=== PATIENT | female | born 1960 | race Caucasian/White ===

== ENCOUNTER 2016-05-24 17:23 | Emergency (ER) | payer OTHER ==
--- NOTE | 2016-05-24 18:01 | DIAGNOSTIC IMAGING REPORT ---
PROCEDURE: XR CHEST 2 VIEW INDICATION: COUGH AND GENERALIZED WEAKNESS TECHNIQUE: PA and lateral views. COMPARISON: None. FINDINGS: Allowing for overlying wires and electrodes, lungs are clear. Heart and mediastinum are normal. Thorax is normal. IMPRESSION: 1. Negative chest.
--- NOTE | 2016-05-24 20:15 | ED ORDER SUMMARY ---
..... Patient: EMMY ORTEGA OrderSheet [facility] VisitID: [id number] [place] [address] 56y, F Registration Date/Time: 05/24/2016 ORDER SHEET Weight: 77.1 kg (estimated) Allergies: Penicillin, Horse-derived Products, Tetracycline GENERAL ORDERS: Chest 2V Urgent (17:33 05/24/2016 Caeasr Duncan) (Ack 17:43 LTapper) (18:41 HOShaughnessy R.N.) Program Director/Morning Show Host (Continuous) (recheck today's concerns) (17:33 05/24/2016 Caesar Duncan) (17:52 HOShaughnessy R.N.) CBC w Diff Urgent (17:05/24/2016 Caesar Duncan) (Ack 17:43 LTapper) (17:52 HOShaughnessy R.N.) CMP Urgent (17:05/24/2016 Caesar Duncan) (Ack 17:43 LTapper) (17:52 HOShaughnessy R.N.) UA-Culture if indicated Urgent (17:33 05/24/2016 Caesar Duncan) (Ack 17:43 LTapper) (18:41 HOShaughnessy R.N.) TSH Urgent (17:33 05/24/2016 Caesar Duncna) (Ack 17:43 LTapper) (17:52 HOShaughnessy R.N.) Lactate, Serum Urgent (17:05/24/2016 Caesar Duncan) (Ack 17:43 LTapper) (17:52 HOShaughnessy R.N.) Pulse oximeter (17:33 05/24/2016 Caesar Duncan) (17:52 HOShaughnessy R.N.) POC Glucose (check 1 hour after insulin) (19:23 05/24/2016 Caesar Duncan) (Cancelled: Other19:24 Caesar Duncan) MEDICATION ORDERS: Potassium Chloride PO 60 meq (NOW) (18:31 05/24/2016 Caesar Duncan) (18:38 HOShaughnessy R.N.) Acetaminophen PO 650 mg (NOW) (18:33 05/24/2016 Caesar Duncan) (Ack 20:07 Jessika R.N.) Insulin Reg Subcut 4 units (HIGH ALERT MEDICATION, NOW) (19:18 05/24/2016 Caesar Duncan) (Cancelled: Other19:35 Caesar Duncan) Azithromycin PO 500 mg (NOW) (19:36 05/24/2016 Caesar Duncan) (20:03 Josefina R.N.) IV FLUIDS: IV NS : initial bolus 1000 mL (1000 mL/hr), then none - for X1 (NOW) (17:33 05/24/2016 Caesar Duncan) (18:04 Josefina R.N.) Toradol IV 30 mg (NOW) (18:33 05/24/2016 Caesar Duncan) (Ack 20:07 Jessika R.N.) IV NS : initial bolus 1000 mL (1000 mL/hr), then none - for X1 (NOW) (19:35 05/24/2016 Caesar Duncan) (20:04 HOShaughchristal R.N.) ORDER SHEET NOTES: [Electronically signed by Larry May R.N. (21:47 05/24/2016)] [Electronically signed by Jose Martins Dr. (19:50 05/26/2016)] [Electronically locked/signed by Larry May R.N. (21:47 05/24/2016)]
--- NOTE | 2016-05-24 20:15 | ED CLINICAL REPORT ---
Clinical Report - Physicians/Mid Levels [facility] [address] [place] [address] 05/24/2016 17:23 Patient: EMMY ORTEGA Arrived- By ambulance. Historian- patient. HISTORY OF PRESENT ILLNESS Chief Complaint: COUGH. This started past several weeks and is still present (staying the same). It was gradual in onset and has been constant but is not gone now. The illness is described as moderate. The patient has had sputum production, a cough, difficulty breathing, nasal congestion and a nasal discharge. No fever or chills. Additional history - The patient has had contact with a sick individual. (spouse). No recent travel. (patient reports being under a lot of stress at work. she states they are having her work out of her comfort zone and it is causing anxiety.). Similar symptoms previously: None. Recent medical care: Not recently seen/assessed. REVIEW OF SYSTEMS No headache. All systems otherwise negative, except as recorded above. PAST HISTORY See nurses notes. Problems: no known problems. Additional Surgeries: no known surgeries. Medications: None. Allergies: Horse-derived Products. Penicillin. Tetracycline. SOCIAL HISTORY Never smoker. No alcohol use or drug use. No recent travel. Is a local resident. ADDITIONAL NOTES The nursing notes have been reviewed. PHYSICAL EXAM Vital Signs: 05/24/2016 17:32 BP: 153/66. HR: 71. RR: 16. O2 saturation: 100%. Temp: 98.2 F. Blood pressure normal. Oxygen saturation normal. Appearance: Alert. Anxious. Patient in mild distress. Eyes: Pupils equal, round and reactive to light. Eyes normal inspection. ENT: Ears normal. Nose normal. Pharynx normal. Uvula midline. Neck: Normal inspection. Neck supple. CVS: Normal heart rate and rhythm. Heart sounds normal. Pulses normal. Respiratory: No respiratory distress. Breath sounds normal. Abdomen: Soft and nontender. No organomegaly. Back: Normal inspection. Skin: Skin warm and dry. Normal skin color. No rash. Normal skin turgor. Extremities: Extremities exhibit normal ROM. No lower extremity edema. Neuro: Oriented X 3. No motor deficit. No sensory deficit. LABS, X-RAYS, AND EKG Chest X-ray: (PROCEDURE: XR CHEST 2 VIEW INDICATION: COUGH AND GENERALIZED WEAKNESS TECHNIQUE: PA and lateral views. COMPARISON: None. FINDINGS: Allowing for overlying wires and electrodes, lungs are clear. Heart and mediastinum are normal. Thorax is normal. IMPRESSION: 1. Negative chest.). Views: PA and lateral. The X-rays were independently viewed by me and interpreted by the radiologist. The X-rays were discussed with the radiologist (via pacs). Laboratory Tests: UA-Culture if indicated: (SAUL: 05/24/2016 18:20) ( MsgRcvd 05/24/2016 18:43) Final results Test Result Flag Units (Reference) URINE COLOR YELLOW URINE APPEARANCE CLEAR URINE GLUCOSE NEGATIVE (NEGATIVE) URINE BILIRUBIN NEGATIVE (NEGATIVE) URINE KETONE 1+ (NEGATIVE) URINE SPECIFIC GRAVITY 1.010 (1.010-1.030) URINE PH 7.5 (5.0-8.0) URINE PROTEIN NEGATIVE (NEGATIVE) URINE UROBILINOGEN 0.2 EU/dL (0.2-1.0) URINE NITRITE NEGATIVE (NEGATIVE) URINE BLOOD TRACE-LYSED (NEGATIVE) URINE LEUK ESTERASE NEGATIVE (NEGATIVE) URINE RBC RARE rbc/hpf (0-1) URINE WBC RARE wbc/hpf (0-1) URINE EPITHELIAL CELLS 0-1 EPI/hpf (0-5) URINE BACTERIA NONE SEEN (NONE SEEN) URINE COMMENT CULT NOT INDICATED URINE CULTURES ARE SET-UP BASED ON THE FOLLOWING CRITERIA:POSITIVE NITRITEPOSITIVE LEUKOCYTE ESTERASEGREATER THAN 10 WHITE BLOOD CELLSMODERATE (2+) OR GREATER BACTERIA CBC w Diff: (SAUL: 05/24/2016 17:46) ( MsgRcvd 05/24/2016 17:59) Final results Test Result Flag Units (Reference) WHITE BLOOD COUNT 8.5 K/uL (4.5-11.5) RED BLOOD COUNT 4.20 M/uL (4.00-5.20) HEMOGLOBIN 13.1 gm/dL (12.0-16.0) HEMATOCRIT 38.2 % (36.0-46.0) MEAN CELL VOLUME 91 fL (80-100) MEAN CORPUSCULAR HGB 31 pg (26-34) MEAN CORPUSCULAR HGB CONC 34 g/dL (31-37) RED CELL DISTRIBUTION WIDTH 12.7 % (11.6-14.8) PLATELET COUNT 292 K/uL (150-400) NEUTROPHIL % 75.2 H % (50-75) LYMPH % 18.8 L % (25-40) MONO % 5.5 % (3-14) EOSINOPHIL % 0.1 % (0-4) BASOPHIL % 0.4 % (0-2) Lactate, Serum: (SAUL: 05/24/2016 17:46) ( MsgRcvd 05/24/2016 18:21) Final results Test Result Flag Units (Reference) LACTIC ACID 1.8 mmol/L (0.4-2.0) CMP: (SAUL: 05/24/2016 17:46) ( AzgRcvd 05/24/2016 18:29) Final results Test Result Flag Units (Reference) GLUCOSE 150 H mg/dL (70-110) BUN 13 mg/dL (7-18) CREATININE 0.6 mg/dL (0.6-1.3) Estimated GFR >60 mL/min Estimated GFR- >60 mL/min Note: Persistent reduction over 3 months in eGFR<60 mL/min/1.73 m2 defines CKD. Patients with eGFR values>=60 mL/min/1.73 m2 may also have CKD if evidence ofpersistent proteinuria. Additional information may be foundat www.[email or web address].org. SODIUM 142 mmol/L (136-145) POTASSIUM 2.8 *L mmol/L (3.5-5.1) CRITICAL RESULTS CALLEDCalled to [facility] 05/24/16 1828Were 2 patient identifiers used? YWas the result read back? Y CHLORIDE 105 mmol/L (98-107) CARBON DIOXIDE 24 mmol/L (21-32) CALCIUM 8.7 mg/dL (8.5-10.1) TOTAL PROTEIN 7.7 g/dL (6.4-8.2) ALBUMIN 4.2 g/dL (3.3-5.0) BILIRUBIN, TOTAL 1.3 H mg/dL (0.0-1.0) ALKALINE PHOSPHATASE 81 U/L (46-116) AST (SGOT) 21 U/L (15-37) ALT (SGPT) 24 U/L (12-78) THYROID STIMULATING HORMONE 4.977 H uIU/mL (0.30-3.74) MAGNESIUM 1.8 mg/dL (1.8-2.4) . PROGRESS AND PROCEDURES Course of Care: the patient is a pleasant 56-year-old female presenting for evaluation of cough and shortness of breath. Symptoms are infectious in etiology. At this time differential diagnosis includes bronchitis, reactive airway disease, or pneumonia. Do not feel patient requires workup for pulmonary embolism at this time. Patient will be evaluated with electrolytes,'s complete blood cell count, and chest x-ray as well as thyroid-stimulating hormone. Patient appears anxious on examination. I discussion with patient in regards to her current situation. Patient also reports that she has not been eating or drinking well for the past several days because of the anxiety from work. We'll have patient rehydrated with IV fluids. Workup does not show any acute abnormalities except for patient with low potassium. Patient's potassium is 2.8. by mouth potassium given here in the emergency department. Patient was reevaluated and found to be alert and in no acute distress. Patient reports feeling much better. I discussion with patient in regards to her workup here in the emergency department. Another liter of fluid will be ordered. Antibiotics will be provided because of the patient having prolonged symptoms of bronchitis. At this point we had considered antibiotics. Patient is agreeable to the treatment plan. Because the patient has been improved with her symptoms and is in no acute distress with normal vital signs and is afebrile, don't feel patient needs to be admitted to the hospital. No evidence of sepsis. I discussed with patient workup, diagnosis, home care, follow-up, and return precautions. All questions answered. The patient expressed understanding of these instructions and was agreeable to them. Disposition: Discharged. Condition: good. CLINICAL IMPRESSION 05/24/2016 19:13 BP: 97/69. HR: 77. RR: 18. O2 saturation: 100%. Pain level now: 0/10. Adjustment disorder with anxiety (acute). Blood pressure normal. Oxygen saturation normal. Acute bronchitis (prolonged). Mild dehydration Hypokalemia (acute). INSTRUCTIONS Warnings: GENERAL WARNINGS: Return or contact your physician immediately if your condition worsens or changes unexpectedly, if not improving as expected, or if other problems arise. Specifically return if pain, vomiting, bleeding, breathing difficulty or fever. Your Current Medications: CONTINUE TAKING THE FOLLOWING MEDICATIONS: None*. Prescription Medications: Azithromycin Z-Avelino: Take according to package instructions. No refills. Potassium Chloride 20 mEq: take 1 orally every 12 hours - Dispense thirty (30) No refills. Follow-up: Return to the emergency department as needed. Follow up with your doctor in three days. Reason for referral: recheck today's concerns. Summary of care provided to patient via paper. Screening today revealed the patient's blood pressure to be in the normal range. The patient should follow up with a primary care provider for blood pressure management. Understanding of the discharge instructions verbalized by patient. (Electronically signed by Jose Martins Dr. 05/26/2016 19:50)
--- NOTE | 2016-05-24 20:15 | ED ORDER SUMMARY ---
..... Patient: EMMY ORTEGA OrderSheet [facility] VisitID: [id number] [place] [address] 56y, F Registration Date/Time: 05/24/2016 ORDER SHEET Weight: 77.1 kg (estimated) Allergies: Penicillin, Horse-derived Products, Tetracycline GENERAL ORDERS: Chest 2V Urgent (17:33 05/24/2016 Caesar Duncan) (Ack 17:43 LTapper) (18:41 HOShaughnessy R.N.) Construction Job Cost Estimator (Continuous) (recheck today's concerns) (17:33 05/24/2016 Caesar Duncan) (17:52 HOShaughnessy R.N.) CBC w Diff Urgent (17:05/24/2016 Caesar Duncan) (Ack 17:43 LTapper) (17:52 HOShaughnessy R.N.) CMP Urgent (17:05/24/2016 Caesar Duncan) (Ack 17:43 LTapper) (17:52 HOShaughnessy R.N.) UA-Culture if indicated Urgent (17:33 05/24/2016 Caesar Duncan) (Ack 17:43 LTapper) (18:41 HOShaughnessy R.N.) TSH Urgent (17:33 05/24/2016 Caesar Duncan) (Ack 17:43 LTapper) (17:52 HOShaughnessy R.N.) Lactate, Serum Urgent (17:05/24/2016 Caesar Duncan) (Ack 17:43 LTapper) (17:52 HOShaughnessy R.N.) Pulse oximeter (17:33 05/24/2016 Caesar Duncan) (17:52 HOShaughnessy R.N.) POC Glucose (check 1 hour after insulin) (19:23 05/24/2016 Caesar Duncan) (Cancelled: Other19:24 Caesar Duncan) MEDICATION ORDERS: Potassium Chloride PO 60 meq (NOW) (18:31 05/24/2016 Caesar Duncan) (18:38 HOShaughnessy R.N.) Acetaminophen PO 650 mg (NOW) (18:33 05/24/2016 Caesar Duncan) (Ack 20:07 Jessika R.N.) Insulin Reg Subcut 4 units (HIGH ALERT MEDICATION, NOW) (19:18 05/24/2016 Caesar Duncan) (Cancelled: Other19:35 Caesar Duncan) Azithromycin PO 500 mg (NOW) (19:36 05/24/2016 Caesar Duncan) (20:03 Josefian R.N.) IV FLUIDS: IV NS : initial bolus 1000 mL (1000 mL/hr), then none - for X1 (NOW) (17:33 05/24/2016 Caesar Duncan) (18:04 Josefina R.N.) Toradol IV 30 mg (NOW) (18:33 05/24/2016 Caesar Duncan) (Ack 20:07 Jessika R.N.) IV NS : initial bolus 1000 mL (1000 mL/hr), then none - for X1 (NOW) (19:35 05/24/2016 Caesar Duncan) (20:04 HOShaughchristal R.N.) ORDER SHEET NOTES: [Electronically signed by Larry May R.N. (21:47 05/24/2016)] [Electronically signed by Jose Martins Dr. (19:50 05/26/2016)] [Electronically locked/signed by Larry May R.N. (21:47 05/24/2016)]
--- NOTE | 2016-05-24 20:15 | ED NURSING NOTES ---
Clinical Report - Nurses [facility] [address] [place] [address] 05/24/2016 17:23 Patient: EMMY ORTEGA TRIAGE Triage time 1733 PM. Chief Complaint: WEAKNESS and COUGH (hyperventilation). --17:36 Larry May R.N. 17:32 05/24/16. BP: 153/66. HR: 71. RR: 16. O2 saturation: 100%. Temp: 98.2 F (oral). Pain level now: cannot qualify. --17:36 Larry May R.N. 19:23 05/24/16. BP: 121/66. HR: 69. RR: 16. O2 saturation: 99%. Temp: 98.2 F (oral). Pain level now: 0/10. --21:25 Larry May R.N. Weight: 77.1 kg estimated. Height/Length: 66 inches Estimated. BMI: 27.4. --21:45 Larry May R.N. Medications None. --19:24 Larry May R.N. Allergies Penicillin. --19:24 Larry May R.N. Horse-derived Products. --19:24 Larry May R.N. Tetracycline. --19:24 Larry May R.N. History Arrived by EMS. Historian: patient. Unaccompanied. This started just prior to arrival. ( Patient presents to the ED via medics with symptoms of cough, weakness, and SOB. Per medics patient was found with [place] medics hyperventilating. Medics were able to slow patient's breathing down and transport her to the ED. Patient states that she is works a the [employer] and has been under quite a lot of stress at work. Patient states that she also is struggling with and upper respiratory virus.). She has had weakness, a cough and difficulty breathing. --17:36 Larry May R.N. PROBLEMS: no known problems. ADDITIONAL SURGERIES: no known surgeries. PHYSICAL ASSESSMENT late entry -19:24 PM. To room via stretcher. GENERAL / NEURO / PSYCH: Appears anxious. Decreased awareness. The patient is disoriented to person, place, time and situation. She has had weakness. HEENT: Pupils equal, round and reactive to light. No facial asymmetry noted. Mucous membranes are pink. RESPIRATORY: Mild respiratory distress. The patient can speak a few words at a time. Cough. CVS: Normal sinus rhythm noted. Capillary refill less than 2 seconds. Pulses within normal limits. GI / : Abdomen soft and nontender and normal bowel sounds. SKIN: Skin intact. Skin is warm and dry. Normal skin turgor. --21:22 Larry May R.N. NURSING PROGRESS NOTES 18:04 05/24/2016 Site #1 started via IV in the right forearm with an 18g angiocath; one attempt. Blood drawn: rainbow set. Labeled in the presence of the patient and sent to the lab. Saline lock flushed with 10 mL saline. --18:04 Larry May R.N. 18:04 05/24/2016 Started IV Fluids IV NS (Saline); bolus of 1000 mL wide open via site #1. Allergies verified and confirmed 5 rights. IV patency established. IV site checked: no pain, redness, or swelling. IV flushed thoroughly pre- and post-medication administration. --18:04 Larry May R.N. 18:38 05/24/2016 Potassium Chloride (Potassium Chloride ER) PO Tablets 60 meq given. Allergies verified and confirmed 5 rights. --18:38 Larry May R.N. 19:13 05/24/16. BP: 97/69. HR: 77. RR: 18. O2 saturation: 100%. Pain level now: 0/10. --19:14 Larry May R.N. Call light placed in reach. Side rails up x 1. Bed placed in lowest position. Brakes of bed on. ( Patient resting on the bed conversing with her spouse on the telephone. Patient appears to be more lucid.). --19:14 Larry May R.N. 20:03 05/24/2016 Azithromycin PO Tablets 500 mg given. Allergies verified and confirmed 5 rights. --20:03 Larry May R.N. 20:04 05/24/2016 Started IV Fluids IV NS (Saline); bolus of 1000 mL wide open via site #1. Allergies verified and confirmed 5 rights. IV patency established. IV site checked: no pain, redness, or swelling. IV flushed thoroughly pre- and post-medication administration. --20:04 Larry May R.N. 21:40 05/24/2016 IV Fluids IV NS Discontinued: bag #1 completed. Total amount infused: 1000 mL. IV patency established. IV site checked: no pain, redness, or swelling. IV flushed thoroughly. --21:40 Larry May R.N. 21:40 05/24/2016 IV Fluids IV NS Discontinued: bag #2 completed. Total amount infused: 1000 mL. IV patency established. IV site checked: no pain, redness, or swelling. IV flushed thoroughly. --21:40 Larry May R.N. 21:42 05/24/2016 Site #1 removed upon discharge. --21:42 Larry May R.N. DISPOSITION / DISCHARGE No learning barriers present. Discharge instructions provided and reviewed with the patient. Reviewed medication(s) side effects, precautions, dosing and course information. Prescription(s) given to the patient. Patient verbalized understanding. Written instructions provided in Belarusian. The patient was discharged home and accompanied by parent. She left the Emergency Department ambulatory and via private vehicle. Parent driving. --21:27 Larry May R.N. Departure time: 2134 PM. --21:34 Larry May R.N. Locked/Released at 05/24/2016 21:47 by Larry May R.N.
--- NOTE | 2016-05-24 20:15 | ED NURSING NOTES ---
Clinical Report - Nurses [facility] [address] [place] [address] 05/24/2016 17:23 Patient: EMMY ORTEGA TRIAGE Triage time 1733 PM. Chief Complaint: WEAKNESS and COUGH (hyperventilation). --17:36 Larry May R.N. 17:32 05/24/16. BP: 153/66. HR: 71. RR: 16. O2 saturation: 100%. Temp: 98.2 F (oral). Pain level now: cannot qualify. --17:36 Larry May R.N. 19:23 05/24/16. BP: 121/66. HR: 69. RR: 16. O2 saturation: 99%. Temp: 98.2 F (oral). Pain level now: 0/10. --21:25 Larry May R.N. Weight: 77.1 kg estimated. Height/Length: 66 inches Estimated. BMI: 27.4. --21:45 Larry May R.N. Medications None. --19:24 Larry May R.N. Allergies Penicillin. --19:24 Larry May R.N. Horse-derived Products. --19:24 Larry May R.N. Tetracycline. --19:24 Larry May R.N. History Arrived by EMS. Historian: patient. Unaccompanied. This started just prior to arrival. ( Patient presents to the ED via medics with symptoms of cough, weakness, and SOB. Per medics patient was found with [employer] medics hyperventilating. Medics were able to slow patient's breathing down and transport her to the ED. Patient states that she is works a the [employer] and has been under quite a lot of stress at work. Patient states that she also is struggling with and upper respiratory virus.). She has had weakness, a cough and difficulty breathing. --17:36 Larry May R.N. PROBLEMS: no known problems. ADDITIONAL SURGERIES: no known surgeries. PHYSICAL ASSESSMENT late entry -19:24 PM. To room via stretcher. GENERAL / NEURO / PSYCH: Appears anxious. Decreased awareness. The patient is disoriented to person, place, time and situation. She has had weakness. HEENT: Pupils equal, round and reactive to light. No facial asymmetry noted. Mucous membranes are pink. RESPIRATORY: Mild respiratory distress. The patient can speak a few words at a time. Cough. CVS: Normal sinus rhythm noted. Capillary refill less than 2 seconds. Pulses within normal limits. GI / : Abdomen soft and nontender and normal bowel sounds. SKIN: Skin intact. Skin is warm and dry. Normal skin turgor. --21:22 Larry May R.N. NURSING PROGRESS NOTES 18:04 05/24/2016 Site #1 started via IV in the right forearm with an 18g angiocath; one attempt. Blood drawn: rainbow set. Labeled in the presence of the patient and sent to the lab. Saline lock flushed with 10 mL saline. --18:04 Larry May R.N. 18:04 05/24/2016 Started IV Fluids IV NS (Saline); bolus of 1000 mL wide open via site #1. Allergies verified and confirmed 5 rights. IV patency established. IV site checked: no pain, redness, or swelling. IV flushed thoroughly pre- and post-medication administration. --18:04 Larry May R.N. 18:38 05/24/2016 Potassium Chloride (Potassium Chloride ER) PO Tablets 60 meq given. Allergies verified and confirmed 5 rights. --18:38 Larry May R.N. 19:13 05/24/16. BP: 97/69. HR: 77. RR: 18. O2 saturation: 100%. Pain level now: 0/10. --19:14 Larry May R.N. Call light placed in reach. Side rails up x 1. Bed placed in lowest position. Brakes of bed on. ( Patient resting on the bed conversing with her spouse on the telephone. Patient appears to be more lucid.). --19:14 Larry May R.N. 20:03 05/24/2016 Azithromycin PO Tablets 500 mg given. Allergies verified and confirmed 5 rights. --20:03 Larry May R.N. 20:04 05/24/2016 Started IV Fluids IV NS (Saline); bolus of 1000 mL wide open via site #1. Allergies verified and confirmed 5 rights. IV patency established. IV site checked: no pain, redness, or swelling. IV flushed thoroughly pre- and post-medication administration. --20:04 Larry May R.N. 21:40 05/24/2016 IV Fluids IV NS Discontinued: bag #1 completed. Total amount infused: 1000 mL. IV patency established. IV site checked: no pain, redness, or swelling. IV flushed thoroughly. --21:40 Larry May R.N. 21:40 05/24/2016 IV Fluids IV NS Discontinued: bag #2 completed. Total amount infused: 1000 mL. IV patency established. IV site checked: no pain, redness, or swelling. IV flushed thoroughly. --21:40 Larry May R.N. 21:42 05/24/2016 Site #1 removed upon discharge. --21:42 Larry May R.N. DISPOSITION / DISCHARGE No learning barriers present. Discharge instructions provided and reviewed with the patient. Reviewed medication(s) side effects, precautions, dosing and course information. Prescription(s) given to the patient. Patient verbalized understanding. Written instructions provided in Georgian. The patient was discharged home and accompanied by parent. She left the Emergency Department ambulatory and via private vehicle. Parent driving. --21:27 Larry May R.N. Departure time: 2134 PM. --21:34 Larry May R.N. Locked/Released at 05/24/2016 21:47 by Larry May R.N.
--- NOTE | 2016-05-26 19:51 | ED MAR SUMMARY ---
..... Medication Administration Record [facility] [address] [place] [address] Patient: EMMY ORTEGA Visit ID: [id number] 56y, F Weight: 77.1 kg Height/Length: 66 in BMI: 27.4 ALLERGIES: Tetracycline, Horse-derived Products, Penicillin Start 18:04 05/24/2016 Larry May R.N., Stop 21:40 05/24/2016 Larry May R.N. Medication Administered: IV NS (SALINE), Dose: IV Fluids, Bolus: 1000 mL wide open, Site: #1 right forearm. Medication Ordered: IV NS : initial bolus 1000 mL (1000 mL/hr), then none - for X1 (NOW). Given 18:38 05/24/2016 Larry May R.N. Medication Administered: POTASSIUM CHLORIDE [PO] (POTASSIUM CHLORIDE ER), Dose: 60 meq Tablets PO. Medication Ordered: Potassium Chloride PO 60 meq (NOW). Given 20:03 05/24/2016 Larry May R.N. Medication Administered: AZITHROMYCIN [PO], Dose: 500 mg Tablets PO. Medication Ordered: Azithromycin PO 500 mg (NOW). Start 20:04 05/24/2016 Larry May R.N., Stop 21:40 05/24/2016 Larry May R.N. Medication Administered: IV NS (SALINE), Dose: IV Fluids, Bolus: 1000 mL wide open, Site: #1 right forearm. Medication Ordered: IV NS : initial bolus 1000 mL (1000 mL/hr), then none - for X1 (NOW).
--- NOTE | 2016-05-26 19:51 | ED MAR SUMMARY ---
..... Medication Administration Record [facility] [address] [place] [address] Patient: EMMY ORTEGA Visit ID: [id number] 56y, F Weight: 77.1 kg Height/Length: 66 in BMI: 27.4 ALLERGIES: Tetracycline, Horse-derived Products, Penicillin Start 18:04 05/24/2016 Larry May R.N., Stop 21:40 05/24/2016 Larry May R.N. Medication Administered: IV NS (SALINE), Dose: IV Fluids, Bolus: 1000 mL wide open, Site: #1 right forearm. Medication Ordered: IV NS : initial bolus 1000 mL (1000 mL/hr), then none - for X1 (NOW). Given 18:38 05/24/2016 Larry May R.N. Medication Administered: POTASSIUM CHLORIDE [PO] (POTASSIUM CHLORIDE ER), Dose: 60 meq Tablets PO. Medication Ordered: Potassium Chloride PO 60 meq (NOW). Given 20:03 05/24/2016 Larry May R.N. Medication Administered: AZITHROMYCIN [PO], Dose: 500 mg Tablets PO. Medication Ordered: Azithromycin PO 500 mg (NOW). Start 20:04 05/24/2016 Larry May R.N., Stop 21:40 05/24/2016 Larry May R.N. Medication Administered: IV NS (SALINE), Dose: IV Fluids, Bolus: 1000 mL wide open, Site: #1 right forearm. Medication Ordered: IV NS : initial bolus 1000 mL (1000 mL/hr), then none - for X1 (NOW).
--- NOTE | 2016-05-26 19:51 | ED MED RECONCILIATION SUMMARY ---
Patient: EMMY ORTEGA Medication Reconciliation Report [facility] VisitID: [id number] [address] [place] [address] 56y, F Registration Date/Time: 05/24/2016 Weight: 77.1 kg Height/Length: 66 in. BMI: 27.4 ALLERGIES: Horse-derived Products, Penicillin, Tetracycline The patient's Home Medications are listed below: NONE. The source(s) of the original Home Medication information: Not obtained. The following Medications were given to the patient in the Emergency Department: IV NS IV Fluids bolus 1000 mL wide open, administered: 05/24/2016 6:04:00 PM Potassium Chloride [PO] PO 60 meq, administered: 05/24/2016 6:38:00 PM Azithromycin [PO] PO 500 mg, administered: 05/24/2016 8:03:00 PM IV NS IV Fluids bolus 1000 mL wide open, administered: 05/24/2016 8:04:00 PM The following Medications were prescribed to the patient: Azithromycin Z-Avelino: Take according to package instructions. No refills. -- Jose Martins Dr. Potassium Chloride 20 mEq: take 1 orally every 12 hours - Dispense thirty (30) No refills. -- Jose Martins Dr.
--- NOTE | 2016-05-26 19:51 | ED MED RECONCILIATION SUMMARY ---
Patient: EMMY ORTEGA Medication Reconciliation Report [facility] VisitID: [id number] [address] [place] [address] 56y, F Registration Date/Time: 05/24/2016 Weight: 77.1 kg Height/Length: 66 in. BMI: 27.4 ALLERGIES: Horse-derived Products, Penicillin, Tetracycline The patient's Home Medications are listed below: NONE. The source(s) of the original Home Medication information: Not obtained. The following Medications were given to the patient in the Emergency Department: IV NS IV Fluids bolus 1000 mL wide open, administered: 05/24/2016 6:04:00 PM Potassium Chloride [PO] PO 60 meq, administered: 05/24/2016 6:38:00 PM Azithromycin [PO] PO 500 mg, administered: 05/24/2016 8:03:00 PM IV NS IV Fluids bolus 1000 mL wide open, administered: 05/24/2016 8:04:00 PM The following Medications were prescribed to the patient: Azithromycin Z-Avelino: Take according to package instructions. No refills. -- Jose Martins Dr. Potassium Chloride 20 mEq: take 1 orally every 12 hours - Dispense thirty (30) No refills. -- Jose Martins Dr.
--- NOTE | 2016-05-26 19:51 | ED DISCHARGE INSTRUCTIONS ---
Patient: EMMY ORTEGA General Instructions [facility] VisitID: [id number] [place] [address] 56y, F Registration Date/Time: 05/24/2016 05/24/2016 19:13 BP: 97/69. HR: 77. RR: 18. O2 saturation: 100%. Pain level now: 0/10. Adjustment disorder with anxiety (acute). Blood pressure normal. Oxygen saturation normal. Acute bronchitis (prolonged). Mild dehydration Hypokalemia (acute). INSTRUCTIONS Warnings: GENERAL WARNINGS: Return or contact your physician immediately if your condition worsens or changes unexpectedly, if not improving as expected, or if other problems arise. Specifically return if pain, vomiting, bleeding, breathing difficulty or fever. Your Current Medications: CONTINUE TAKING THE FOLLOWING MEDICATIONS: None*. Prescription Medications: Azithromycin Z-Avelino: Take according to package instructions. No refills. Potassium Chloride 20 mEq: take 1 orally every 12 hours - Dispense thirty (30) No refills. Follow-up: Return to the emergency department as needed. Follow up with your doctor in three days. Reason for referral: recheck today's concerns. Summary of care provided to patient via paper. Screening today revealed the patient's blood pressure to be in the normal range. The patient should follow up with a primary care provider for blood pressure management. Understanding of the discharge instructions verbalized by patient. ADDITIONAL INFORMATION Bronchitis (Adult: Abx Tx) BRONCHITIS is an infection of the air passages (bronchial tubes). It often occurs during the common cold. Symptoms include cough with mucus (phlegm) and low-grade fever. Bronchitis usually lasts 7-14 days. Mild cases can be treated with simple home remedies. More severe infection is treated with an antibiotic. Home Care: If symptoms are severe, rest at home for the first 2-3 days. When you resume activity, don't let yourself get too tired. Do not smoke. Avoid being exposed to the smoke of others. You may use acetaminophen (Tylenol) or ibuprofen (Motrin, Advil) to control fever or pain, unless another medicine was prescribed for this. [NOTE: If you have chronic liver or kidney disease or ever had a stomach ulcer or GI bleeding, talk with your doctor before using these medicines.] Your appetite may be poor, so a light diet is fine. Avoid dehydration by drinking 6-8 glasses of fluids per day (water, soft, drinks, juices, tea, soup, etc.). Extra fluids will help loosen secretions in the lungs. [id number] cough medicines that containdextromethorphan(such as Robitussin DM) and decongestants (Actifed or Sudafed) may help relieve cough and congestion. [NOTE: Do not use decongestants if you have high blood pressure.] Finish all antibiotic medicine, even if you are feeling better after only a few days. Follow Up with your doctor or as directed if you dont start to feel better after three days. [NOTE: If you are age 65 or older, or if you have chronic asthma or COPD, we recommend a PNEUMOCOCCAL VACCINATION every five years and a yearly INFLUENZAVACCINATION (FLU-SHOT) every . Ask your doctor about this. If you had an X-ray, a radiologist will review it. You will be notified of any new findings that may affect your care.] Get Prompt Medical Attention if any of the following occur: Fever over 100.4F (38.0C) for more than three days Trouble breathing, wheezing or pain with breathing Coughing up blood or increased amounts of colored sputum Weakness, drowsiness, headache, facial pain, ear pain or a stiff neck Adjustment Disorder An adjustment disorder is a condition that results from having a hard time coping with the normal stresses of life. You may feel you have too much to do and cant get it all done. These feelings may be triggered by divorce, job loss, someone you know dying, or by a positive event like getting a new job or getting . These feelings may interfere with your relationships at home and at work. With this condition, it is common to feel sad, guilty, hopeless and restless. These feelings may continue for weeks or months. It can be helpful to identify what is causing the additional stress and takes steps to get extra support. If new stressful events do not occur, it is likely that you will start feeling better within six months. Home Care: If you have been given a prescription for medicine, take it as directed. It helps to talk about your feelings and thoughts with family or friends that understand and support you. Follow Up with your doctor or therapist as advised by our staff. Let them know if this condition lasts more than six months without sign of improvement. For more information, contact the [employer] [place] [employer] at 287-212-3187 or visit www.rashad.org. Get Prompt Medical Attention if any of the following occur: Worsening depression or anxiety Feeling out of control Thoughts of harming yourself or another Being unable to care for yourself Dehydration (Adult) Dehydration occurs when your body loses too much fluid. This may be the result of vomiting a lot or from diarrhea,sweating a lot, or a high fever. It may also happen if you dont drink enough fluid when youre sick. Misuse of diuretics (water pills) can also be a cause. Symptoms include thirst and feeling dizzy, weak, fatigued, or very drowsy. The diet described below is usually enough to treat most cases. Sometimes you may needmedicine. Home Care Follow these guidelines for home care: Drink at least 12 8-ounce glasses of fluid every day to overcome the dehydration. Fluid may include water; orange juice; lemonade; apple, grape, and cranberry juice; clear fruit drinks; electrolyte replacement and sports drinks; and teas and coffee without caffeine. If you have been diagnosed with a kidney disease, ask your doctor how much and what types of fluids you should drink to prevent dehydration. If you have kidney disease, drinking too much fluid can cause it build up in the your body and be dangerous to your health. If you have fever, muscle aching, or headache from a viral syndrome, you may useacetaminophen or ibuprofen, unless another medicine was prescribed for this.If you have chronic liver or kidney disease or ever had a stomach ulcer or GI bleeding, talk with your doctor before using these medicines. Don't take aspirin if you are younger than 18 and are ill with a fever.Aspirin raises the chance forsevere liver injury. Follow-up care Follow up with your health care provider if you don't get better in the next 24 to 48 hours. When to seek medical care Get prompt medical attention if any of theseoccur: Continued vomiting (cant keep liquids down) Frequent diarrhea (more than 5 times a day); blood (red or black color) or mucus in diarrhea Blood in vomit or stool Swollen abdomen or increasing abdominal pain Weakness, dizziness, or fainting Unusually drowsy or confused Reduced urine output or extreme thirst Fever of 100.4 F (38 C) oral or higher that does not get better with fever medication Hypokalemia Hypokalemia means a low level of potassium in the blood. This most often occurs in patients who take diuretics (water pills). It can also occur due to severe vomiting or diarrhea. A mild case usually causes no symptoms. It is only found with blood testing. More severe potassium loss causes generalized weakness, muscle or abdominal cramping, heart palpitations (rapid or irregular heartbeats) and low blood pressure. Home Care: 1) Take any potassium supplements prescribed. 2) Eat foods rich in potassium. The highest amount is found in artichoke, baked potatoes, spinach, cantaloupe, honeydew melon, cod, halibut, salmon, and scallops. White, red, or naqvi beans are also very good sources. A modest amount is found in orange juice, bananas, carrots, and tomato juice. 3) Certain types of diuretics (water pills), such as Lasix (furosemide), require that you take potassium supplements for as long as you take the diuretic pills. If you are taking a diuretic, discuss the need for potassium supplements with your doctor. Follow Up with your doctor for a repeat blood test within the next week or as advised by our staff. Get Prompt Medical Attention if any of the following occur: -- Increased weakness -- Feeling dizzy -- Irregular heartbeat, extra beats or very fast heart rate -- Fainting spell Azithromycin Oral tablet What is this medicine? AZITHROMYCIN (az ith valeriano MYE sin) is a macrolide antibiotic. It is used to treat or prevent certain kinds of bacterial infections. It will not work for colds, flu, or other viral infections. How should I use this medicine? Take this medicine by mouth with a full glass of water. Follow the directions on the prescription label. The tablets can be taken with food or on an empty stomach. If the medicine upsets your stomach, take it with food. Take your medicine at regular intervals. Do not take your medicine more often than directed. Take all of your medicine as directed even if you think your are better. Do not skip doses or stop your medicine early. Talk to your television news producer regarding the use of this medicine in children. Special care may be needed. What side effects may I notice from receiving this medicine? Side effects that you should report to your doctor or health youth career specialist as soon as possible: allergic reactions like skin rash, itching or hives, swelling of the face, lips, or tongue confusion, nightmares or hallucinations dark urine difficulty breathing hearing loss irregular heartbeat or chest pain pain or difficulty passing urine redness, blistering, peeling or loosening of the skin, including inside the mouth white patches or sores in the mouth yellowing of the eyes or skin Side effects that usually do not require medical attention (report to your doctor or health youth career specialist if they continue or are bothersome): diarrhea dizziness, drowsiness headache stomach upset or vomiting tooth discoloration vaginal irritation What may interact with this medicine? Do not take this medicine with any of the following medications: lincomycin This medicine may also interact with the following medications: amiodarone antacids cyclosporine digoxin magnesium nelfinavir phenytoin warfarin What if I miss a dose? If you miss a dose, take it as soon as you can. If it is almost time for your next dose, take only that dose. Do not take double or extra doses. Where should I keep my medicine? Keep out of the reach of children. Store at room temperature between 15 and 30 degrees C (59 and 86 degrees F). Throw away any unused medicine after the expiration date. What should I tell my health care provider before I take this medicine? They need to know if you have any of these conditions: kidney disease liver disease irregular heartbeat or heart disease an unusual or allergic reaction to azithromycin, erythromycin, other macrolide antibiotics, foods, dyes, or preservatives or trying to get breast-feeding What should I watch for while using this medicine? Tell your doctor or health youth career specialist if your symptoms do not improve. Do not treat diarrhea with over the counter products. Contact your doctor if you have diarrhea that lasts more than 2 days or if it is severe and watery. This medicine can make you more sensitive to the sun. Keep out of the sun. If you cannot avoid being in the sun, wear protective clothing and use sunscreen. Do not use sun lamps or tanning beds/booths. You have been given the following additional information: Bronchitis, Antiobiotic Treatment (Adult) Adjustment Disorder Dehydration (Adult) Hypokalemia Azithromycin Oral tablet (Electronically signed by Jose Martins Dr. 05/26/2016 19:50)
== END 2016-05-24 21:48 | disposition home or self-care (01) ==
LOC: ED SRH 17:23
DX: J20.9 Acute bronchitis, unspecified (principal); E87.6 Hypokalemia; E86.0 Dehydration; F43.22 Adjustment disorder with anxiety; Z88.0 Allergy status to penicillin; Z88.1 Allergy status to other antibiotic agents
CPT/HCPCS: 90004; 90100; 92031; 92720; 93140; 95059